=== PATIENT | female | born 1980 ===

== ENCOUNTER 2020-03-25 15:42 | Outpatient (REF) | payer SELFPAY | END 2020-03-25 15:43 | disposition home or self-care (01) | LOC: HO.LAB 15:42 | PROVIDERS: Visit Provider Internal Medicine | DX: Z20.828 Contact with and (suspected) exposure to other viral communicable diseases (principal) | CPT/HCPCS: C9803; U0003 ==

== ENCOUNTER 2020-06-04 08:21 | Outpatient (REF) | payer OTHER, SELFPAY ==
[2020-06-04 09:24] LABS: Alanine Aminotransferase 11 U/L (0-31); Albumin Level 4.2 g/dL (3.5-5.0); Alkaline Phosphatase 73 U/L (39-117); Anion Gap 10 (12-20); Aspartate Amino Transferase 20 U/L (5-31); Bilirubin Total 0.4 mg/dL (0.0-1.0); Blood Urea Nitrogen 20 mg/dL (9-16); Calcium 9.2 mg/dL (8.4-10.2); Carbon Dioxide 25 mmol/L (22-29); Chloride 109 mmol/L (96-108); Cholesterol 146 mg/dL; Estimated Glomerular Filt Rate > 60; Glucose Fasting 89 mg/dL (60-99); HDL Cholesterol 42 mg/dL; LDL Cholesterol Calculated 92 mg/dl; Sodium 140 mmol/L (135-145); Total Protein 7.6 g/dL (6.5-8.0); Triglycerides 60 mg/dL
[2020-06-04 09:45] LABS: TSH reflex Free T4 1.05 uIU/mL (0.32-4.0)
[2020-06-06 08:20] LABS: HBsAGNum1 0.15 S/CO (0.00-0.99); Hepatitis B Surface Antigen Negative (Negative); ~HepC Num1 0.11 S/CO (0.00-0.79); ~Hepatitis C Antibody Nonreactive (Nonreactive)
[2020-06-06 08:35] LABS: HBS Num1 4.14 mIU/mL (0-7.99); HBc Num1 0.07 S/CO (0.00-0.79); HIV AB/AG Nonreactive (Nonreactive); HIV Num 1 0.07 S/CO (0.00-0.99); Hepatitis B Core Antibody Nonreactive (Nonreactive); ~Hepatitis B Surface Antibody NONREACTIVE (Nonreactive)
[2020-06-06 20:16] LABS: C. trachomatis RNA TMA NOT DETECTED (NOT DETECTED); N. gonorrhoeae RNA TMA NOT DETECTED (NOT DETECTED)
[2020-06-09 14:27] LABS: Vitamin D 25-OH, D2 <4 ng/mL; Vitamin D 25-OH, D3 15 ng/mL; Vitamin D 25-OH, Total 15 ng/mL (30-100)
== END 2020-06-04 08:22 | disposition home or self-care (01) ==
LOC: HO.LAB 08:21
PROVIDERS: PCP Internal Medicine; Visit Provider Internal Medicine
DX: Z11.3 Encounter for screening for infections with a predominantly sexual mode of transmission (principal); Z01.84 Encounter for antibody response examination; Z11.4 Encounter for screening for human immunodeficiency virus [HIV]; R63.6 Underweight; E55.9 Vitamin D deficiency, unspecified; Z83.3 Family history of diabetes mellitus
CPT/HCPCS: 36415; 80053; 80061; 82306; 84443; 86704; 86706; 86803; 87340; 87389; 87491; 87591

== ENCOUNTER 2020-06-06 07:53 | Outpatient (REF) | payer OTHER, SELFPAY ==
[2020-06-07 09:23] LABS: BV Int Neg Control Negative (Negative); BV Int Pos Control Positive (Positive)
[2020-06-07 11:41] LABS: C. trachomatis RNA TMA NOT DETECTED (NOT DETECTED); N. gonorrhoeae RNA TMA NOT DETECTED (NOT DETECTED)
[2020-06-09 11:42] LABS: HPV mRNA E6/E7 rflx Not Detected (Not Detected)
== END 2020-06-06 07:54 | disposition home or self-care (01) ==
LOC: HO.LAB 07:53
PROVIDERS: PCP Internal Medicine; Visit Provider Advanced Practice Midwife
DX: Z01.419 Encounter for gynecological examination (general) (routine) without abnormal findings (principal); Z30.09 Encounter for other general counseling and advice on contraception; R10.2 Pelvic and perineal pain; N64.4 Mastodynia
CPT/HCPCS: 36415; 87480; 87491; 87510; 87591; 87624; 87660; 88142

== ENCOUNTER 2020-06-14 11:23 | Outpatient (REF) | payer OTHER, SELFPAY ==
--- NOTE | ~2020-06-14 | US_ITS ---
EXAMINATION: ULTRASOUND PELVIS TRANSABDOMINAL/TRANSVAGINAL COMPLETE CLINICAL INFORMATION: Pelvic and perineal pain. COMPARISON: Pelvic ultrasound dated 12/27/2017. TECHNIQUE: Multiple 2-D grayscale and Doppler transabdominal/transvaginal ultrasound images of the pelvis were obtained. FINDINGS: Uterus: Retroverted/retroflexed measuring 11.1 x 4.7 x 5.6 cm. The endometrium measures up to 0.6 cm at the level the fundus without significant abnormality. Tiny submucosal calcifications are noted near the fundus measuring up to 0.3 cm. The cervix is unremarkable. Mild free fluid in the cul-de-sac. Right ovary: 3.5 x 1.7 x 1.7 cm with a volume of 5.1 mL. Doppler showed no abnormal vascular flow. Left ovary: 3.3 x 2.7 x 1.8 cm with a volume of 8.4 mm. Color Doppler showed no abnormal vascular flow. Mild prominence of the left periuterine vessels. US/US transvaginal IMPRESSION: 1. Retroverted/retroflexed uterus without significant abnormality. 2. Mild prominence of the left periuterine vessels is nonspecific. No left ovarian abnormality. Mild congestion cannot be excluded.
--- NOTE | ~2020-06-14 | US_ITS ---
EXAMINATION: ULTRASOUND PELVIS TRANSABDOMINAL/TRANSVAGINAL COMPLETE CLINICAL INFORMATION: Pelvic and perineal pain. COMPARISON: Pelvic ultrasound dated 12/27/2017. TECHNIQUE: Multiple 2-D grayscale and Doppler transabdominal/transvaginal ultrasound images of the pelvis were obtained. FINDINGS: Uterus: Retroverted/retroflexed measuring 11.1 x 4.7 x 5.6 cm. The endometrium measures up to 0.6 cm at the level the fundus without significant abnormality. Tiny submucosal calcifications are noted near the fundus measuring up to 0.3 cm. The cervix is unremarkable. Mild free fluid in the cul-de-sac. Right ovary: 3.5 x 1.7 x 1.7 cm with a volume of 5.1 mL. Doppler showed no abnormal vascular flow. Left ovary: 3.3 x 2.7 x 1.8 cm with a volume of 8.4 mm. Color Doppler showed no abnormal vascular flow. Mild prominence of the left periuterine vessels. US/US pelvic complete IMPRESSION: 1. Retroverted/retroflexed uterus without significant abnormality. 2. Mild prominence of the left periuterine vessels is nonspecific. No left ovarian abnormality. Mild congestion cannot be excluded.
== END 2020-06-14 11:24 | disposition home or self-care (01) ==
LOC: HO.US 11:23
PROVIDERS: Visit Provider Advanced Practice Midwife
DX: R10.2 Pelvic and perineal pain (principal)
CPT/HCPCS: 76830; 76856

== ENCOUNTER 2020-06-15 10:48 | Outpatient (REF) | payer OTHER, SELFPAY ==
--- NOTE | ~2020-06-15 | MM_ITS ---
EXAMINATION: MM DIAGNOSTIC DIGITAL BREAST TOMOSYNTHESIS, bilateral Targeted left breast ultrasound. CLINICAL INFORMATION: Left breast pain. We are region and superior aspect left breast. The lifetime risk of breast cancer based on the Tyrer-Cuzick Model is 11.2%. COMPARISON: Mammography: None TECHNIQUE: Digital breast tomosynthesis is performed in both the craniocaudal and mediolateral oblique views along with computer-aided detection (CAD). Synthesized 2D images are generated from the tomosynthesis. Targeted left breast ultrasound. FINDINGS: The breasts are extremely dense, which lowers the sensitivity of mammography (ACR BI-RADS breast composition Category d). There are no significant masses, abnormal calcifications, or other abnormalities. Targeted left breast ultrasound demonstrates dense breast parenchyma without focal mass or region of distal sound shadowing. No edematous change within the parenchyma is seen. Results are provided to the patient at time of visit by the technologist. MM/MM tomosynthesis diagnostic BI IMPRESSION: No specific mammographic or ultrasound findings to suggest malignancy. ASSESSMENT: BI-RADS 1: Negative RECOMMENDATION: 1. Patient should be managed based on the clinical impression. 2. Otherwise, routine annual screening mammography. This patient's information was entered into a reminder system with a target due date for their next mammogram.
--- NOTE | ~2020-06-15 | US_ITS ---
EXAMINATION: US DIAGNOSTIC ULTRASOUND BREAST, LEFT CLINICAL INFORMATION: Mastodynia. COMPARISON: Mammography of same day.. TECHNIQUE: Ultrasound of the breast is performed with real-time gatica scale imaging and color Doppler. FINDINGS: Targeted left breast ultrasound demonstrates dense breast parenchyma without focal mass or region of distal sound shadowing. No edematous change within the parenchyma is seen. Results are provided to the patient at time of visit by the technologist. US/US breast LT limited IMPRESSION: No specific mammographic or ultrasound findings to suggest malignancy. ASSESSMENT: BI-RADS 1: Negative RECOMMENDATION: 1. Patient should be managed based on the clinical impression. 2. Otherwise, routine annual screening mammography.
== END 2020-06-15 10:49 | disposition home or self-care (01) ==
LOC: HO.MAMMO 10:48
PROVIDERS: PCP Internal Medicine; Visit Provider Advanced Practice Midwife
DX: N64.4 Mastodynia (principal)
CPT/HCPCS: 76642; 77062; 77066

== ENCOUNTER → 2020-06-17 11:04 | Outpatient (BNVA) | payer OTHER, SELFPAY | PROVIDERS: PCP Internal Medicine; Visit Provider Advanced Practice Midwife | DX: Z30.42 Encounter for surveillance of injectable contraceptive (principal) | CPT/HCPCS: 96372; 99211; J1050 ==

== ENCOUNTER → 2020-06-28 11:35 | Outpatient (BNVA) | payer OTHER, SELFPAY | PROVIDERS: PCP Internal Medicine; Visit Provider Advanced Practice Midwife ==

== ENCOUNTER → 2020-07-27 14:49 | Outpatient (BNVA) | payer OTHER, SELFPAY | PROVIDERS: Visit Provider Obstetrics & Gynecology | DX: Z30.09 Encounter for other general counseling and advice on contraception (principal) | CPT/HCPCS: 99212 ==

== ENCOUNTER 2020-07-28 08:08 | Day surgery (SDC) | payer OTHER, SELFPAY ==
[2020-07-22 09:48] VITALS: BMI 19.3
[2020-07-28] VITALS (7 sets, daily range): BP systolic 117–129; BP diastolic 70–80; PULSE 57–109; RESP 16–18; TEMP 36.2–36.7; O2SAT 99–100
[2020-07-28 08:29] LABS: UPreg QC Valid YES; Urine Pregnancy NEGATIVE (NEGATIVE)
[2020-07-28] MEDS: Lactated Ringers 1,000 ML 20 ML IVCONT (08:44)
--- NOTE | 2020-07-28 09:08 | P.CONAN_ITS ---
[facility] Active Problems Active Problems: All Active Problems (Updated 06/28/20 @ 11:48 by Julia miller) Encounter to discuss test results (Acute) Depot contraception (Acute) Low back pain (Acute) Screen for STD (sexually transmitted disease) (Acute) Family history of diabetes mellitus (DM) (Acute) Right hip pain (Acute) Past Medical History Medical History Family history of diabetes mellitus (DM) Low back pain Right hip pain Screen for STD (sexually transmitted disease) Family History Family History Father Diabetes Hypertension Heart attack Mother Hypertension Maternal Aunt Breast cancer Social History Social History Alcohol intake: never Smoking Status: Never smoker Advance Directives Information Provided: No Meds Allergies Allergy/AdvReac Type Severity Reaction Status Date / Time No Known Allergies Allergy Verified 06/28/20 11:46 Active Medications: Current Medications Generic Name Dose Route Start Last Admin Trade Name Freq PRN Reason Stop Dose Admin Sodium Chloride 500 mls @ 20 mls/hr 07/27/20 14:30 Ns IVCONT .Q24H CARLOS Lactated Ringer's 1,000 mls @ 20 mls/hr 07/27/20 14:30 07/28/20 08:44 Lr IVCONT 20 mls/hr .Q24H CARLOS Administration Acetaminophen 1,000 mg in 100 mls @ 400 mls/hr 07/28/20 11:00 Ofirmev IV 07/28/20 11:14 PREOP ONE Exam Exam Date and Time: July 28, 2020 0908 Height,Weight and Vital Signs: Height 5 ft 4 in Weight 51.256 kg Last Vital Signs Temp 98.1 F 07/28/20 08:23 Pulse 109 H 07/28/20 08:23 Resp 16 07/28/20 08:23 BP 129/79 07/28/20 08:23 Pulse Ox 99 07/28/20 08:23 Pertinent Lab Results Pertinent Lab Results: Laboratory Tests 07/28/20 08:09 Urine Test NEGATIVE Airway Mallampati Class: I TM Dist: >3cm Neck ROM: Full Assessment and Plan Assessment Anesthesia Assessment: Anesthesia Plan Discussed and Chart Reviewed Final Anesthetic Review NPO: Yes ASA Class: I Final Preanesthetic Review: No Changes in Pt Med Stat, Meds/Allgs Chart Reviewed, Consent Obtained/Reviewed and Anes Risks/Benef Reviewed Patient Risk: Low Procedure Risk: Low Assessment/Block/Sedation in SS: Assess/Block/Sedation-SS Anesthetic Plan Anesthetic Plan: GA Disposition: Standard PACU
--- NOTE | 2020-07-28 09:12 | MHC.SHP ---
Pre-Procedural Eval Section A The patient is an INPATIENT: No Changes since office visit: No Cold of Flu in the past 2 weeks, No New Medical Problems, No Changes in Medication and No Patient answered all questions The History & Physical has been completed within 30 days and I have reviewed it.: Yes Section B Chief Complaint: Unwanted Pregnacy Allergies: Allergies Allergy/AdvReac Type Severity Reaction Status Date / Time No Known Allergies Allergy Verified 06/28/20 11:46 Plan I have reviewed the history and physical and performed a pertinent physical examination on my patient. No changes have occurred unless specified.
--- NOTE | 2020-07-28 09:15 | P.OP_ITS ---
Operative Note Operative Note Date of Service: 07/28/20 Narrative: Pre-Procedure Diagnosis: unwanted fertility Post-Procedure Diagnosis: unwanted fertility Procedures performed: Laparoscopic bilateral tubal ligation Search Director: none Complications: none Specimens: none Disposition: Pacu Ms. Clifford is a 39 year old who has completed her family planning and desires a permanent form of sterilization. Surgical Risks: The patient was informed of the risks and benefits of the proc edure. Risks included but were not limited to bleeding, infection, injury to the vulva, vagina, or cervix, and uterine perforation. The patient was counseled on the risk of sterilization failure being about 1% on average. The patient was informed that in the event a occurs, the risk of ectopic is increased. The patient expressed understanding of the risks involved, all questions were answered, and the patient consented to the procedure. The patient had valid sterilization consent at the time of the procedure. The patient was taken to the operating room where a time out was performed to confirm correct patient and correct procedure. General anesthesia was established. The patient was then positioned on the operating table in the dorsal lithotomy position with the legs supported using stirrups. All pressure points were padded and a Joelle hugger was placed to maintain control of core body temperature. The patient was then prepped and draped in the usual sterile fashion. A red rubber catheter was inserted and 200mL urine obtained. A sponge stick was placed in the vagina for uterine manipulation. Attention was turned to the abdomen where a 5mm vertical infraumbilical incision was made. The 5mm trocar was introduced under direct visualization using the laparoscopy within the sleeve of the trocar. After intra-abdominal placement had been confirmed, the trocar was removed leaving the sleeve in place. The camera was introduced and pneumoperitoneum was established using carbon dioxide. Inspection of the abdominal cavity showed no gross abnormalities and there was no evidence of injury to the bowel, bladder, or vasculature. Attention was turned to the pelvis. The patient was placed into Trendelenburg position. The fallopian tubes and ovaries were visualized bilaterally. There were multiple paratubal cysts noted on the left fallopian tube; no other abnormalities noted. A small incision was made in the midline approximately 2cm above the pubic symphysis. A 5mm trocar was introduced through this incision under direct visualization with the laparoscope. The fallopian tubes were inspected bilaterally and the fimbriated ends of the fallopian tube were visualized bilaterally. The right fallopian tube and mesosalpinx were grasped and cauterized using Bipolar electrocautery with the Ligasure device. This was done with approximately three kang starting medially about 1cm from the cornua and working laterally. Good cautery was confirmed. Attention was then turned to the contralateral fallopian tube and mesosalpinx which was grasped about 1cm from the cornua and cauterized with three kang moving laterally with each cauterization. Good fulguration of both tubes was then confirmed. The pneumoperitoneum was then evacuated. The laparoscope was removed and the trocar sleeves were removed. The sponge stick was removed from the vagina. The skin incisions were closed with a single interrupted 3-0 Vicryl suture and Dermabond was applied. Good hemostasis was confirmed. The patient was transferred to the recovery room in stable condition. All needle, sponge, and instrument counts were noted to be correct x2 at the end of the procedure.
[2020-07-28] MEDS: oxyCODONE HCl Immed Release 5 MG TABLET PO (10:50)
== END 2020-07-28 11:39 | disposition home or self-care (01) ==
LOC: HO.SSS 08:09
PROVIDERS: PCP Internal Medicine; Visit Provider Obstetrics & Gynecology
PROC: (CPT 58670; principal; 2020-07-28 10:00)
DX: Z30.2 Encounter for sterilization (principal); K66.0 Peritoneal adhesions (postprocedural) (postinfection)
CPT/HCPCS: 58670; 81025; J0131; J1100; J1885; J2250; J2405; J3010

== ENCOUNTER 2021-03-29 08:35 | Outpatient (REF) | payer OTHER, SELFPAY | END 2021-03-29 08:36 | disposition home or self-care (01) | LOC: HO.LAB 08:35 | PROVIDERS: Visit Provider Internal Medicine | DX: Z20.822 Contact with and (suspected) exposure to COVID-19 (principal) | CPT/HCPCS: C9803; U0003; U0005 ==

== ENCOUNTER 2021-07-13 08:17 | Outpatient (REF) | payer OTHER, SELFPAY ==
[2021-07-13 08:34] LABS: MANUAL DIFF FLAG NO
[2021-07-13 09:02] LABS: Basophils Absolute Auto 0.1 X10*3/uL (0.0-0.2); Basophils Percent Auto 0.9 % (0-2); Eosinophils Absolute Auto 0.1 X10*3/uL (0.0-0.4); Eosinophils Percent Auto 1.5 % (0-4); Hematocrit 40.2 % (37.0-47.0); Hemoglobin 12.6 g/dl (12.0-16.0); Imm Gran Abs Auto 0.01 X10*3/uL (0.00-0.03); Imm Gran Pct Auto 0.2 % (0.0-0.4); Lymphocytes Absolute Auto 1.7 X10*3/uL (1.2-4.9); Lymphocytes Percent Auto 29.8 % (20-40); Mean Corpuscular HGB Conc 31.3 g/dl (31.0-35.0); Mean Corpuscular Hemoglobin 26.5 pg (27.0-33.0); Mean Corpuscular Volume 84.6 fL (80.0-98.0); Mean Platelet Volume 10.5 fL (9.4-12.3); Monocytes Absolute Auto 0.5 X10*3/uL (0.1-1.2); Monocytes Percent Auto 8.1 % (2-11); Neutrophils Absolute Auto 3.5 x10*3/uL (2.0-8.3); Neutrophils Percent Auto 59.5 % (45-73); Platelet Count 269 X10*3/uL (160-400); Red Blood Count 4.75 X10*6/uL (4.20-5.50); White Blood Count 5.8 X10*3/uL (4.8-10.8)
[2021-07-13 09:32] LABS: Alanine Aminotransferase 15 U/L (0-31); Albumin Level 4.3 g/dL (3.5-5.0); Alkaline Phosphatase 75 U/L (39-117); Anion Gap 11 (12-20); Aspartate Amino Transferase 21 U/L (5-31); Bilirubin Total 0.7 mg/dL (0.0-1.0); Blood Urea Nitrogen 14 mg/dL (9-16); Calcium 9.5 mg/dL (8.4-10.2); Carbon Dioxide 25 mmol/L (22-29); Chloride 106 mmol/L (96-108); Estimated Glomerular Filt Rate > 60; Glucose Random 89 mg/dL (60-115); Potassium 4.1 mmol/L (3.3-5.1); Sodium 138 mmol/L (135-145); Total Protein 7.8 g/dL (6.5-8.0)
[2021-07-13 09:56] LABS: TSH reflex Free T4 1.67 uIU/mL (0.32-4.0); Vitamin D 25-OH Total 17.5 ng/mL (>30)
[2021-07-13 09:59] LABS: Vitamin B12 666 pg/mL (200-900)
[2021-07-13 16:53] LABS: CT PCR NOT DETECTED (Not Detect.); NG PCR NOT DETECTED (Not Detect.)
== END 2021-07-13 08:18 | disposition home or self-care (01) ==
LOC: HO.LAB 08:17
PROVIDERS: PCP Internal Medicine; Visit Provider Nurse Practitioner Family
DX: Z11.3 Encounter for screening for infections with a predominantly sexual mode of transmission (principal); R53.83 Other fatigue
CPT/HCPCS: 36415; 80053; 82306; 82607; 82746; 84443; 85025; 87491; 87591

== ENCOUNTER 2022-01-11 09:42 | Outpatient (REF) | payer OTHER, SELFPAY ==
--- NOTE | ~2022-01-11 | XR_ITS ---
EXAMINATION: XR LUMBOSACRAL SPINE CLINICAL INFORMATION: Low back pain COMPARISON: None TECHNIQUE: Three views of the lumbosacral spine. FINDINGS: There is curvature of the lower thoracic and upper lumbar spine to the left and lumbar sacral spine to the right. There is exaggerated lumbar lordosis. No fracture or dislocation. Disc spaces are normal. There may be facet arthritis of the lower lumbar spine. XR/XR lumbar spine 2-3V IMPRESSION: Severe scoliosis.
[2022-01-11 10:16] LABS: MANUAL DIFF FLAG NO
[2022-01-11 10:45] LABS: Basophils Percent Auto 0.5 % (0-2); Eosinophils Percent Auto 0.5 % (0-4); Hematocrit 38.8 % (37.0-47.0); Hemoglobin 12.3 g/dl (12.0-16.0); Imm Gran Abs Auto 0.01 X10*3/uL (0.00-0.03); Imm Gran Pct Auto 0.2 % (0.0-0.4); Lymphocytes Absolute Auto 1.7 X10*3/uL (1.2-4.9); Lymphocytes Percent Auto 28.9 % (20-40); Mean Corpuscular HGB Conc 31.7 g/dl (31.0-35.0); Mean Corpuscular Hemoglobin 26.7 pg (27.0-33.0); Mean Corpuscular Volume 84.3 fL (80.0-98.0); Mean Platelet Volume 10.8 fL (9.4-12.3); Monocytes Absolute Auto 0.4 X10*3/uL (0.1-1.2); Monocytes Percent Auto 6.9 % (2-11); Neutrophils Absolute Auto 3.7 x10*3/uL (2.0-8.3); Platelet Count 254 X10*3/uL (160-400); Red Cell Distribution Width 14.1 % (11.0-16.0); White Blood Count 5.8 X10*3/uL (4.8-10.8)
[2022-01-11 11:10] LABS: Alanine Aminotransferase 11 U/L (0-31); Albumin Level 4.4 g/dL (3.5-5.0); Alkaline Phosphatase 76 U/L (39-117); Anion Gap 13 (12-20); Aspartate Amino Transferase 21 U/L (5-31); Bilirubin Total 0.5 mg/dL (0.0-1.0); Blood Urea Nitrogen 14 mg/dL (9-16); Calcium 9.5 mg/dL (8.4-10.2); Carbon Dioxide 26 mmol/L (22-29); Chloride 106 mmol/L (96-108); Estimated Glomerular Filt Rate > 60; Glucose Random 81 mg/dL (60-115); Iron 97 mcg/dL (30-160); Percent Iron Saturation 34 % (15-50); Potassium 3.8 mmol/L (3.3-5.1); Sodium 141 mmol/L (135-145); Total Iron Binding Capacity 282 mcg/dL (228-428); Total Protein 7.8 g/dL (6.5-8.0); Unsaturated Iron Binding 185 ug/dL
[2022-01-11 11:13] LABS: B Type Natriuretic Peptide 42 pg/mL (<100)
[2022-01-11 11:34] LABS: Vitamin D 25-OH Total 19.3 ng/mL (>30)
[2022-01-11 11:51] LABS: Folate 17.7 ng/mL (> or = 4.0); Vitamin B12 455 pg/mL (200-900)
== END 2022-01-11 09:43 | disposition home or self-care (01) ==
LOC: HO.LAB 09:42
PROVIDERS: PCP Internal Medicine; Visit Provider Internal Medicine
DX: M54.50 Low back pain, unspecified (principal); E55.9 Vitamin D deficiency, unspecified; D64.9 Anemia, unspecified; R01.1 Cardiac murmur, unspecified; R53.83 Other fatigue
CPT/HCPCS: 36415; 72100; 80053; 82306; 82607; 82746; 83540; 83880; 84443; 85025

== ENCOUNTER 2022-01-16 15:27 | Outpatient (REF) | payer OTHER, SELFPAY ==
--- NOTE | ~2022-01-16 | MM_ITS ---
EXAMINATION: MM SCREENING DIGITAL BREAST TOMOSYNTHESIS, BILATERAL CLINICAL INFORMATION: Screening. Asymptomatic. The lifetime risk of breast cancer based on the Tyrer-Cuzick Model is 13%. COMPARISON: Mammography: 06/15/2020 (baseline) TECHNIQUE: Digital breast tomosynthesis is performed in both the craniocaudal and mediolateral oblique views along with computer-aided detection (CAD). Synthesized 2D images are generated from the tomosynthesis. FINDINGS: The breasts are extremely dense, which lowers the sensitivity of mammography (ACR BI-RADS breast composition Category d). Breast tissue composition borders on heterogeneously dense. No architectural abnormality. There are no significant masses, abnormal calcifications, or other abnormalities. The axilla and skin contours are unremarkable. MM/MM tomosynthesis screening BI IMPRESSION: No mammographic evidence of malignancy. ASSESSMENT: BI-RADS 1: Negative RECOMMENDATION: Routine annual mammography screening. This patient's information was entered into a reminder system with a target due date for their next mammogram.
== END 2022-01-16 15:28 | disposition home or self-care (01) ==
LOC: HO.MAMMO 15:27
PROVIDERS: Visit Provider Internal Medicine
DX: Z12.31 Encounter for screening mammogram for malignant neoplasm of breast (principal)
CPT/HCPCS: 77063; 77067

== ENCOUNTER → 2022-01-29 13:38 | Outpatient (REF) | payer OTHER, SELFPAY ==
--- NOTE | 2022-01-29 13:40 | CA_ITS ---
Transthoracic Echocardiogram Patient (Last, First, Middle): Angelia Clifford, Gender: Female Date of : 1980 Age: 41 Procedure Date: 01/29/2022 Procedure Type: Transthoracic Echocardiogram Location: OP Height: 160.02 cm Weight: 54.43 kg BSA: 1.56 m2 Heart Rate: bpm BP: 125 / 72 mmHg Substation Operator Transforming: TO Referring MD: Jerri Boone MD Guardian Ad Litem: Dima Schmid MD Symptoms: R01.1 - Cardiac murmur, unspecified Study Quality: Good ECG Rhythm: Sinus Conclusions: - Normal study Findings Left Ventricle Normal left ventricular size, thickness, and systolic function. The visually estimated ejection fraction is between 60-65%. Diastolic function is normal for age. Right Ventricle Normal right ventricular cavity size and systolic function. Atria Both atria are normal in size. There is no evidence of interatrial shunt. Aortic Valve Normal aortic valve structure and function. There is no aortic valve stenosis. There is no aortic valve regurgitation. Mitral Valve Normal mitral valve structure and function. There is trace mitral valve regurgitation. There is no mitral valve stenosis. Pulmonic Valve The pulmonic valve is likely normal. Tricuspid Valve Normal tricuspid valve structure. There is trace tricuspid valve regurgitation. The right ventricular systolic pressure is normal. The right ventricular systolic pressure is 17 mmHg. Normal right atrial pressure. There is no evidence of pulmonary hypertension. Great Vessels All visible segments of the aorta are normal in size. The pulmonary artery was not well visualized. Venous The inferior vena cava is normal in size and collapses greater than 50% with inspiration. Pericardium/Pleural There is no evidence of pericardial effusion. Prior Study Comparison No prior study available for comparison. Measurements 2D Linear Measurements IVSd: 0.82 0.6-0.9/0.6-1.0 cm LVIDd: 3.78 3.9-5.3/4.2-5.9 cm LVIDd Index: 2.42 2.4-3.2/2.2-3.1 cm/m2 LVIDs: 2.65 2.0-3.6 cm LVPWd: 0.75 0.7-1.1 cm LA Diam: 2.80 2.7-3.8/3.0-4.0 cm LAIDs Index: 1.79 1.5-2.3 cm/m2 LV Mass: 102.82 67-162/88-224 g LV Mass Index: 65.91 43-95/49-115 g/m2 LVOT Diam: 1.90 3.0+(-)1.3 cm 2D Systolic Function EF 4C: 61.10 >55% EF 2C: 65.70 >55% EF BiP: 63.20 >55% Mitral Valve MV Pk E: 0.63 MV PK A: 0.36 MV Decel Time: 231.00 E/A: 1.80 E'Lateral: 16.80 E'Medial: 9.57 E/E' Med: 6.60 E/E' Lat: 3.80 PHT: 68.00 MVA PHT: 3.24 Decel Monroe: 2.72 Aortic Valve AoV Pk Osmany: 1.42 AoV Mn Osmany: 0.95 AoV VTI: 0.27 AoV Pk Grad: 8.00 Aov Mn Grad: 4.00 JEAN Cont.VTI: 1.99 LVOT LVOT Pk Osmany: 1.07 LVOT Mn Osmany: 0.63 LVOT VTI: 0.19 LVOT Pk Grad: 5.00 LVOT Mn Grad: 2.00 LVOT Diam: 1.90 LVOT Area: 2.84 Diastolic Function MV Pk E: 0.63 MV Pk A: 0.36 E/A: 1.80 E'Medial: 9.57 E/E' Med: 6.60 E' Laterial: 16.80 E/E' Lat: 3.80 Right Ventricle TAPSE (mm): 24.00 TVS' Osmany: 14.00 Tricuspid Valve TR Pk Osmany: 1.87 TR Pk Grad: 14.00 RA Press: 3.00 RVSP: 17.00 Great Vessels Aorta Sinus of Valsalva: 2.55 2.0-3.5 cm Ao Asc: 2.30 2.1-3.4 cm Updated in Other Vendor System with Status of Final Dima Schmid MD electronically signed on 01/29/2022 6:04:52 PM with status of Final
== END ==
LOC: HO.CARD 13:38
PROVIDERS: Visit Provider Internal Medicine
DX: R01.1 Cardiac murmur, unspecified (principal)
CPT/HCPCS: 93306

== ENCOUNTER 2022-06-15 12:02 | Outpatient (REF) | payer OTHER, SELFPAY ==
[2022-06-15 12:36] LABS: Hematocrit 36.3 % (37.0-47.0); Hemoglobin 11.8 g/dl (12.0-16.0); Mean Corpuscular HGB Conc 32.5 g/dl (31.0-35.0); Mean Corpuscular Hemoglobin 27.1 pg (27.0-33.0); Mean Corpuscular Volume 83.4 fL (80.0-98.0); Mean Platelet Volume 9.7 fL (9.4-12.3); Platelet Count 221 X10*3/uL (160-400); Red Blood Count 4.35 X10*6/uL (4.20-5.50); Red Cell Distribution Width 13.5 % (11.0-16.0); White Blood Count 7.7 X10*3/uL (4.8-10.8)
[2022-06-15 13:30] LABS: Alanine Aminotransferase 16 U/L (0-31); Alkaline Phosphatase 68 U/L (39-117); Anion Gap 11 (12-20); Aspartate Amino Transferase 21 U/L (5-31); Bilirubin Total 0.6 mg/dL (0.0-1.0); Blood Urea Nitrogen 12 mg/dL (9-16); Calcium 8.8 mg/dL (8.4-10.2); Carbon Dioxide 25 mmol/L (22-29); Chloride 106 mmol/L (96-108); Estimated Glomerular Filt Rate > 60; Glucose Random 90 mg/dL (60-115); Potassium 3.5 mmol/L (3.3-5.1); Sodium 138 mmol/L (135-145); Total Protein 7.2 g/dL (6.5-8.0)
== END 2022-06-15 12:03 | disposition home or self-care (01) ==
LOC: HO.LAB 12:02
PROVIDERS: PCP Internal Medicine; Visit Provider Nurse Practitioner Family
DX: Z32.01 Encounter for pregnancy test, result positive (principal)
CPT/HCPCS: 36415; 80053; 84702; 85027; 87086

== ENCOUNTER 2022-06-15 15:17 | Outpatient (REF) | payer OTHER, SELFPAY ==
--- NOTE | ~2022-06-15 | US_ITS ---
EXAMINATION: US OBSTETRICAL ULTRASOUND CLINICAL INFORMATION: Positive test. COMPARISON: Pelvic ultrasound dated 06/14/2020.. LMP: 05/16/2022, but not definitive. TECHNIQUE: Multiple 2-D grayscale FINDINGS: Uterus is anteverted and anteflexed measuring 12.0 x 6.1 x 7.3 cm. There is a single intrauterine gestational sac with visible yolk sac, embryo/fetus, and cardiac activity. There is no significant subchorionic hemorrhage or hematoma. Mild free fluid in the cul-de-sac. HR: 144 beats per minute. CRL (crown rump length): 1.05 cm (7 weeks, 2 days +/- 4 days). REMY (estimated date of delivery): 01/30/2023 +/- 4 days. US/US OB pelvic and transvaginal IMPRESSION: 1. Single intrauterine gestation with ultrasound gestational age of 7 weeks, 2 days +/- 4 days. Short-term obstetric follow-up is recommended. Imaging follow-up is recommended as clinically indicated.
== END 2022-06-15 15:18 | disposition home or self-care (01) ==
LOC: HO.US 15:17
PROVIDERS: PCP Obstetrics & Gynecology; Visit Provider Obstetrics & Gynecology
DX: Z32.01 Encounter for pregnancy test, result positive (principal)
CPT/HCPCS: 76801; 76817

== ENCOUNTER → 2022-06-18 10:52 | Outpatient (BNVA) | payer OTHER, SELFPAY | PROVIDERS: Visit Provider Obstetrics & Gynecology | DX: Z34.90 Encounter for supervision of normal pregnancy, unspecified, unspecified trimester (principal) | CPT/HCPCS: 99212 ==

== ENCOUNTER → 2022-06-29 09:22 | Outpatient (BNVA) | payer OTHER, SELFPAY | PROVIDERS: Visit Provider Obstetrics & Gynecology ==

== ENCOUNTER 2022-07-23 08:41 | Outpatient (REF) | payer OTHER, SELFPAY ==
[2022-07-23 09:25] LABS: Hematocrit 35.1 % (37.0-47.0); Hemoglobin 11.7 g/dl (12.0-16.0); Mean Corpuscular HGB Conc 33.3 g/dl (31.0-35.0); Mean Corpuscular Hemoglobin 27.1 pg (27.0-33.0); Mean Corpuscular Volume 81.3 fL (80.0-98.0); Mean Platelet Volume 10.4 fL (9.4-12.3); Platelet Count 223 X10*3/uL (160-400); Red Blood Count 4.32 X10*6/uL (4.20-5.50); Red Cell Distribution Width 12.9 % (11.0-16.0)
[2022-07-23 09:48] LABS: Amphetamine Screen Urine Not Detected (Not Detect); Barbiturates, Urine Not Detected (Not Detect); Benzodiazepines Screen Urine Not Detected (Not Detect); Cannabinoid Screen Urine Not Detected (Not Detect); Cocaine Screen Urine Not Detected (Not Detect); Fentanyl, urine Not Detected (Not Detect); Opiate Screen Urine Not Detected (Not Detect); Phencyclidine Screen Urine Not Detected (Not Detect)
[2022-07-23 10:04] LABS: Syphilis Screen Nonreactive (Nonreactive)
[2022-07-23 10:09] LABS: HBsAGNum1 0.27 S/CO (0.00-0.99); HIV AB/AG Nonreactive (Nonreactive); HIV Num 1 0.06 S/CO (0.00-0.99); Hepatitis B Surface Antigen Negative (Negative); ~HepC Num1 0.14 S/CO (0.00-0.79); ~Hepatitis C Antibody Nonreactive (Nonreactive)
[2022-07-25 01:23] LABS: Rubella IgG Antibody 3.78 Index
[2022-08-02 16:54] LABS: CF Ethnicity NG; Cystic Fibrosis NEGATIVE (NEGATIVE)
== END 2022-07-23 08:42 | disposition home or self-care (01) ==
LOC: HO.LAB 08:41
PROVIDERS: PCP Internal Medicine; Visit Provider Obstetrics & Gynecology
DX: Z34.90 Encounter for supervision of normal pregnancy, unspecified, unspecified trimester (principal)
CPT/HCPCS: 80307; 81220; 85027; 86762; 86780; 86787; 86803; 86850; 86900; 87086; 87340; 87389

== ENCOUNTER 2022-07-27 13:48 | Outpatient (REF) | payer OTHER, SELFPAY ==
[2022-07-28 11:35] LABS: BV Int Neg Control Negative (Negative); BV Int Pos Control Positive (Positive)
[2022-07-28 12:28] LABS: CT PCR NOT DETECTED (Not Detect.); NG PCR NOT DETECTED (Not Detect.)
== END 2022-07-27 13:49 | disposition home or self-care (01) ==
LOC: HO.LNP 13:48
PROVIDERS: PCP Internal Medicine; Visit Provider Advanced Practice Midwife
DX: O09.521 Supervision of elderly multigravida, first trimester (principal); O26.891 Other specified pregnancy related conditions, first trimester; Z83.3 Family history of diabetes mellitus; Z20.2 Contact with and (suspected) exposure to infections with a predominantly sexual mode of transmission; Z3A.13 13 weeks gestation of pregnancy
CPT/HCPCS: 0353U; 81003; 87480; 87510; 87660; 99212

== ENCOUNTER 2022-07-30 07:36 | Outpatient (REF) | payer OTHER, SELFPAY ==
[2022-07-30 10:41] LABS: Glucose 1 Hour PP 50gm Dose 85 mg/dL (60-140)
== END 2022-07-30 07:37 | disposition home or self-care (01) ==
LOC: HO.LAB 07:36
PROVIDERS: PCP Internal Medicine; Visit Provider Advanced Practice Midwife
DX: Z83.3 Family history of diabetes mellitus (principal)
CPT/HCPCS: 36415; 82950

== ENCOUNTER → 2022-08-24 13:45 | Outpatient (BNVA) | payer OTHER, SELFPAY | PROVIDERS: PCP Internal Medicine; Visit Provider Advanced Practice Midwife | DX: O09.522 Supervision of elderly multigravida, second trimester (principal); Z3A.17 17 weeks gestation of pregnancy | CPT/HCPCS: 81003; 99212 ==

== ENCOUNTER → 2022-09-21 13:21 | Outpatient (BNVA) | payer OTHER, SELFPAY | PROVIDERS: PCP Internal Medicine; Visit Provider Advanced Practice Midwife | DX: O09.522 Supervision of elderly multigravida, second trimester (principal); O26.892 Other specified pregnancy related conditions, second trimester; R35.0 Frequency of micturition; N99.89 Other postprocedural complications and disorders of genitourinary system; Z83.3 Family history of diabetes mellitus; Z3A.21 21 weeks gestation of pregnancy | CPT/HCPCS: 99212 ==

== ENCOUNTER 2023-01-05 17:08 | Emergency (ER) | payer OTHER, SELFPAY ==
[2023-01-05 17:22] VITALS: BP 133/79; PULSE 82; RESP 16; TEMP 37.3; O2SAT 97; BMI 22.3
--- NOTE | 2023-01-05 17:24 | ED.GENADULT ---
HPI - General Adult General Chief complaint: Urogenital-Female Stated complaint: skin /tissue is vaginal area Time Seen by Provider: 01/05/23 17:29 Source: patient Mode of arrival: ambulatory Limitations: language barrier ( Declined aerial photograph interpreter services) History of Present Illness HPI narrative: 42-year-old female here with complaints of swelling and pain in the vaginal area noticed today after showering. Patient reports she had uncomplicated vaginal delivery 1 week ago at [facility]. She tells me that all of her OBGYN care was at [facility]. She went there today to the emergency room but left due to the long wait. Patient reports she has some abdominal cramping which is intermittent scant vaginal bleeding which she has had since delivering which seems to be improving and is not worsened. She denies any difficulty urinating. No fevers or chills. Related Data Previous Rx's Medication Instructions Recorded back brace #1 ea 01/17/22 prenat.vits,pradeep,[id number]-[id number] 1 tab PO DAILY #90 tabs 06/15/22 doxylamine succinate 25 mg tablet 25 mg PO BEDTIME nausea vomiting 06/26/22 (Unisom (doxylamine)) 30 days #30 tabs pyridoxine (vitamin B6) 25 mg 25 mg PO TID 30 days #90 tabs 06/26/22 tablet Allergies Allergy/AdvReac Type Severity Reaction Status Date / Time No Known Allergies Allergy Verified 09/21/22 13:43 Review of Systems Review of Systems: Yes all other systems are reviewed and are negative Constitutional: Constitutional: Reports no additional constitutional complaints, Denies body ache(s), Denies chills, Denies fever(s), Denies headache(s) and Denies weakness Eyes: Eyes: Reports no additional eye complaints and Denies change in vision ENT: Reports system reviewed and no additional complaints, except as documented, Denies dizziness, Denies headache(s), Denies nasal congestion, Denies nasal discharge and Denies neck pain Cardiovascular: Cardiovascular: Reports no additional cardiovascular complaints, Denies chest pain, Denies leg edema and Denies dyspnea Respiratory: Respiratory: Reports no additional respiratory complaints, Denies cough and Denies dyspnea Gastrointestinal: Gastrointestinal: Reports no additional gastrointestinal complaints, Denies abdominal pain, Denies diarrhea, Denies nausea and Denies vomiting Genitourinary: Genitourinary: Reports no additional female genitourinary complaints and Denies urinary incontinence Musculoskeletal: Musculoskeletal: Reports no additional musculoskeletal complaints, Denies back pain, Denies arthralgias, Denies joint swelling, Denies neck pain, Denies numbness and Denies tingling Integumentary/Breasts: Skin/Breast: Reports system reviewed and no additional complaints, except as docu and Denies rash Neurologic: Reports system reviewed and no additional complaints, except as documented, Denies Abnormal speech present, Denies dizziness, Denies headache(s), Denies numbness, Denies tingling and Denies weakness [facility]LY [facility] Past Medical History Attestation statement: The following information was validated with the patient. Source: old records reviewed and nursing notes reviewed Medical History Primigravida of advanced maternal age in second trimester Low back pain Family history of diabetes mellitus (DM) Right hip pain Surgical History History of tubal ligation Family History Family History Father Diabetes Hypertension Heart attack Mother Hypertension Maternal Aunt Breast cancer Social History Social History Household Members: Spouse and Children Housing: Apartment Alcohol intake: never Patient Tobacco Use Status: Never used Tobacco e-Cigarette/Vaping Use: Never Used Second Hand Smoke Exposure: No Advance Directives: No Advance Directives Information Provided: No service: No Current occupational status: employed Current occupational exposures/hazards: No Cognitive needs: No Hearing needs: No Vision needs: Yes Physical Exam ED Vital Signs: Vital Signs - 24 hr 01/05/23 17:22 Temperature 99.1 F Pulse Rate 82 Respiratory Rate 16 Blood Pressure 133/79 Pulse Oximetry 97 Oxygen Delivery Method Room Air BMI result Body Mass Index 22.3 Const General: cooperative, healthy appearing, comfortable and no acute distress Orientation/consciousness: patient oriented x3 Limitations: no limitations HENMT Head: Yes normal to inspection Ears: hearing grossly normal bilaterally General nose exam: Normal external nose present Face and sinus: Yes normal facial exam Mouth: Normal oral and palatal mucosa present Throat: Yes posterior oropharynx normal Eyes General: appearance normal, both eyes and all related structures Pupils: Equal, round and reactive pupils present Neck Neck: Yes normal visual inspection Chest Chest palpation & inspection: normal inspection of the chest Resp Effort & Inspection: normal respiratory effort Auscultation: clear to auscultation bilaterally Cardio Rate: regular rate Rhythm: regular rhythm Peripheral pulses: Peripheral pulses 2+ throughout GI Inspection: Yes normal to inspection Palpation (GI): Soft to palpation and nontender Auscultation: normal bowel sounds Other: When the patient is laying supine the external appearance appears normal. When she stands up there is mild uterine prolapse noted, this improves when the patient lays supine. Carmen RN senior category manager Back/Spine/Pelvis Thoracic/Lumbar Spine: thoracic and lumbar spine normal to inspection Skin General skin exam: no rashes or lesions noted Neuro General: patient oriented x3, no focal motor deficits and normal sensation to monofilament Cranial nerves: Yes Equal, round and reactive pupils present Cognition (Neuro): normal cognition Speech: No Abnormal speech present Gait exam (Neuro): Normal gait present Motor exam (neuro): 5/5 motor strength present throughout Extrem General: Yes normal to inspection Course Course Course Narrative: RME- 42 year old female presents for evaluation of a ball in my vagina. She reports that she is one week post from a vaginal delivery. She gave at [facility]. Plan for physical examination. Reevaluation(s) Reevaluation #1: I did speak to gynecology at [facility]. They do feel the patient can follow up outpatient. She does have an appointment on Saturday with her ownn OBGYN for her check. She can keep this appointment on Saturday. She should seek care at [facility] for any worsening symptoms and this was communicated to her. Reviewed worrisome signs and symptoms with the patient. Comfortable plan for discharge home. Medical Decision Making Medical Decision Making [facility] Narrative: 42-year-old female here with complaints of swelling and pain in the vaginal area noticed today after showering. Patient reports she had uncomplicated vaginal delivery 1 week ago at [facility]. She tells me that all of her OBGYN care was at [facility]. She went there today to the emergency room but left due to the long wait. Patient reports she has some abdominal cramping which is intermittent scant vaginal bleeding which she has had since delivering which seems to be improving and is not worsened. She denies any difficulty urinating. No fevers or chills. when the patient is supine her external experience is normal. When she stands up there is mild uterine prolapse noted. This improves with lying supine again. The patient's abdomen is soft and nontender. She is nontoxic appearing. no urinary difficulty Will discuss with her microwave oven assembler Differential Diagnosis Differential Diagnoses: The differential diagnosis associated with the presentation includes uterine prolapse low concern for hemorrhage, infection, retained products of conception Admission/Observation Consideration of admission/observation: Escalation of care including admission/observation considered Consult Healthcare Provider Management of the patient was discussed with: Food Manager Cigarette Machine Operator- Spoke to microwave oven assembler at [facility]. patient can follow-up outpatient with her microwave oven assembler. She should seek care and we 2 for any worsening symptoms this weekend Discharge Plan Discharge Clinical Impression: Uterine prolapse Patient Disposition: Home, Self-Care Instructions: Uterine Prolapse (ED) Additional Instructions: keep your appointment on Saturday to see your OBGYN for check This if there is any increase in pain, increase in swelling, fever, inability to urinate you can go to wetu triage at [facility] to be seen. this is located on the ground floor of the [facility] acuda a kelly floyd el arabella para dian a kelly obstetra y ginec?logo para un control posparto. Elva fin de semana, si hay alg?n aumento en el dolor, aumento en la hinchaz?n, fiebre o incapacidad para orinar, puede ir a Wetu Triage en [facility] para ser atendido. Est? ubicado en la plant[place] del [facility]. Prescriptions: No Action (DME) [facility] See Rx Instructions .Route Qty: 1 0RF Rx Instructions: As directed pyridoxine (vitamin B6) 25 mg tablet 25 mg PO TID 30 Days Qty: 90 1RF Unisom (doxylamine) 25 mg tablet 25 mg PO BEDTIME 30 Days Qty: 30 0RF prenat.vits,pradeep,[id number]-[id number] Tablet 1 tab PO DAILY Qty: 90 1RF Referrals: Jerri Kern MD [Primary Care Provider] - 1 week Print Language: Indonesian
== END 2023-01-05 19:09 | disposition home or self-care (01) ==
PROVIDERS: Emergency Provider Emergency Medicine; PCP Internal Medicine
DX: N81.4 Uterovaginal prolapse, unspecified (principal); R10.2 Pelvic and perineal pain
CPT/HCPCS: 99284

== ENCOUNTER 2023-01-29 15:44 | Outpatient (REF) | payer OTHER, SELFPAY ==
--- NOTE | ~2023-01-29 | MM_ITS ---
EXAMINATION: MM SCREENING DIGITAL BREAST TOMOSYNTHESIS, BILATERAL CLINICAL INFORMATION: Screening. Asymptomatic. Patient is one month . COMPARISON: Mammography: This study is compared with prior exams dating back to 2020. TECHNIQUE: Digital breast tomosynthesis is performed in both the craniocaudal and mediolateral oblique views along with computer-aided detection (CAD). Synthesized 2D images are generated from the tomosynthesis. FINDINGS: The breasts are extremely dense, which lowers the sensitivity of mammography (ACR BI-RADS breast composition Category d). There are no significant masses, abnormal calcifications, or other abnormalities. MM/MM tomosynthesis screening BI IMPRESSION: No mammographic evidence of malignancy. ASSESSMENT: BI-RADS BI-RADS 1 - Negative RECOMMENDATION: Routine annual mammography screening. 1 year F/U This examination should not preclude the clinical evaluation of a suspicious palpable abnormality. This patient's information was entered into a reminder system with a target due date for their next mammogram.
== END 2023-01-29 15:45 | disposition home or self-care (01) ==
LOC: HO.MAMMO 15:44
PROVIDERS: Visit Provider Internal Medicine
DX: Z12.31 Encounter for screening mammogram for malignant neoplasm of breast (principal)
CPT/HCPCS: 77063; 77067

== ENCOUNTER → 2023-01-29 15:45 | Outpatient (BNV) | payer OTHER, SELFPAY | PROVIDERS: Visit Provider Radiology Diagnostic Radiology | DX: Z12.31 Encounter for screening mammogram for malignant neoplasm of breast (principal) | CPT/HCPCS: 77063; 77067 ==

== ENCOUNTER 2023-09-16 09:52 | Outpatient (AMB) | payer OTHER, SELFPAY ==
--- NOTE | 2023-09-16 10:22 | AM.OFFVISNUR ---
Intake Intake Visit Reasons: PPD Implant Allergies No Known Allergies Allergy (Verified 09/21/22 13:43) Office Meds tuberculin PPD 5 tub. unit/0.1 mL intradermal injection solution Performing Provider: Jerri Boone MD [facility] Administered by: Trang Busby RN on 09/16/23 10:22 Dose Route Admin Location Dispensed Lot Number Expiration Date NDC Rheostat Assembler 0.1 mL intradermal 0.1 mL [id number] 08/05/26 59845-675-00 [employer] Coding Assessment & Plan Assessment & Plan Orders: Orders AMB PPD Planted Today Z11.1 - Encounter for screening for respiratory tuberculosis Medications: New tuberculin PPD 0.1 mL intradermal ONCE 0.1 mL 0RF Z11.1 - Encounter for screening for respiratory tuberculosis
== END 2023-09-16 10:26 | disposition home or self-care (01) ==
PROVIDERS: Visit Provider Internal Medicine
DX: Z11.1 Encounter for screening for respiratory tuberculosis (principal)
CPT/HCPCS: 86580

== ENCOUNTER 2023-09-23 12:03 | Outpatient (AMB) | payer OTHER, SELFPAY ==
--- NOTE | 2023-09-23 12:27 | MHC.PC.OV ---
Vital Signs 09/23/23 12:28 Height 5 ft 3 in Weight 125 lb BMI 22.1 BP 112/78 Blood Pressure Location Lt brachial Position Sitting Intake Visit Reasons: PE Intake Note: Patient here for a physical exam Cracker Dough Mixer Required: No Accompanied by: Child Allergies No Known Allergies Allergy (Verified 09/23/23 12:36) Medication List - Last Reconciled 09/23/23 by Jerri Boone MD back brace As directed Tobacco use date assessed: 09/23/23 Dental Screening Dental Screen Date: 09/23/23 Did you have a dental visit in the last 12 months?: Yes Did you have a dental problem in the last 6 months where you did not have access to dental care?: No Was dental information given to patient?: Patient has dentist HPI HPI Comments History of Present Illness Details This is a 43-year-old female that comes for her physical exam. Last mammogram was 01/25/2023 and was normal. Last Pap smear was 2020 and was normal. No chest pain or shortness on breath. Doing well. [facility] Medical History (Updated 09/23/23 @ 13:09 by Jerri Boone MD) Primigravida of advanced maternal age in second trimester Low back pain Family history of diabetes mellitus (DM) Right hip pain Surgical History History of tubal ligation Family History (Updated 09/23/23 @ 12:41 by Jerri Boone MD) Father Diabetes Hypertension Heart attack Mother Hypertension Thyroid disease Cardiovascular disease Maternal Aunt Breast cancer Social History Household Members: Spouse and Children Housing: Apartment Alcohol intake: never Patient Tobacco Use Status: Never used Tobacco e-Cigarette/Vaping Use: Never Used Second Hand Smoke Exposure: No service: No Current occupational status: employed Current occupational exposures/hazards: No Cognitive needs: No Hearing needs: No Vision needs: Yes Female Reproductive History Menstrual Age of Menarche: 11 Questionnaire PHQ-9 Over the last 2 weeks, how often have you been bothered by any of the following problems? 1. Little interest or pleasure in doing things: not at all 2. Feeling down, depressed, or hopeless: not at all 3. Trouble falling or staying asleep, or sleeping too much: not at all 4. Feeling tired or having little energy: not at all 5. Poor appetite or overeating: not at all 6. Feeling bad about yourself - or that you are a failure or have let yourself or your family down: not at all 7. Trouble concentrating on things, such as reading the newspaper or watching television: not at all 8. Moving or speaking so slowly that other people could have noticed. Or the opposite - being so fidgety or restless that you have been moving around a lot more than usual: not at all 9. Thoughts that you would be better off or of hurting yourself in some way: not at all Total score: 0 Depression Screening Interpretation: Negative Depression Screening Done: Yes 69679 - PHQ-9 Billing: Yes Source: Developed by Drs. Zechariah Tam, Selam Guidry, Jose G Abad and colleagues, with an educational baldemar from [employer]. Thrive Questionnaire Date Thrive assessed: 09/23/23 I am a: Patient What is your living situation today?: I have a steady place to live Within the past 12 months, did the food you bought not last and you didn't have the money to get more?: Never true Within the past 12 months, did you worry whether your food would run out before you got money to buy more?: Never true Do you have trouble paying for medicines?: No Do you have trouble getting transportation to medical appointments?: No Do you have trouble paying your heating and electricity bill?: No Do you have trouble taking care of your child, family member or friend?: No Do you have trouble with day-to-day activities such as bathing, preparing meals, shopping, managing finances, etc.?: No Are you currently unemployed and looking for a job?: No Are you interested in more education?: No Please select the resources that you would like help with: None Currently or been in a relationship where the following occur: no concerns reported THRIVE Score: 0 AUDIT C Alcohol Use Questionnaire (AUDIT-C) 1. How often do you have a drink containing alcohol?: Never Total Score: 0 BENI-7 AMB Questionnaire BENI-7 Date BENI - 7 assessed: 09/23/23 Feeling nervous, anxious, or on edge: 0 = Not at all Not being able to stop or control worryin = Not at all Worrying too much about different things: 0 = Not at all Trouble relaxin = Not at all Being so restless that it is hard to sit still: 0 = Not at all Becoming easily annoyed or irritable: 0 = Not at all Feeling afraid as if something awful might happen: 0 = Not at all Total BENI-7 score (0-4 normal; 5-9 mild; 10-14 moderate; 15-21 severe): 0 Source: Developed by Drs. Zechariah Tam, Selam Guidry, Jose G Abad and colleagues, with an educational baldemar from [employer]. BENI-7 Assessment Billing BENI-7 Assessment Tool: BENI-7 Assessment 41201 Review of Systems Const All systems reviewed & are unremarkable except as noted in HPI and below Eyes Reports no additional complaints, Denies change in vision and Denies other visual disturbances Card Denies chest pain at rest, Denies chest pain with activity, Denies edema, Denies irregular heart rhythm, Denies claudication, Denies dyspnea, Denies dyspnea on exertion, Denies orthopnea, Denies paroxysmal nocturnal dyspnea and Denies slow heart rate Resp Denies cough, Denies dyspnea and Denies dyspnea on exertion Physical exam (Primary Care) Vital Signs: Last Vital Signs BP 112/78 09/23/23 12:28 BMI result Body Mass Index 22.1 Tobacco/Smoking Status: Tobacco use Status Tobacco use date assessed 09/23/23 09/23/23 12:34 Patient Tobacco Use Status Never used Tobacco 09/23/23 12:34 e-Cigarette/Vaping Use Never Used 09/23/23 12:34 PHQ-9: PHQ-9 Score PHQ-9: Total score 0 09/23/23 12:42 Depression Screening Interpretation: Negative Thrive Assessment: Date of Thrive Assessment Date Thrive assessed 09/23/23 09/23/23 12:34 Currently or been in a relationship where the following occur: no concerns reported Const Orientation/consciousness: patient oriented x3 HENMT Head: Yes normal to inspection, Yes normocephalic and Yes atraumatic Ears: external ears normal Eyes General: appearance normal, both eyes and all related structures Eyelids: Yes eyelids normal Conjunctivae: conjunctivae normal Neck Neck: Yes normal visual inspection and Yes supple Resp Effort & Inspection: normal respiratory effort Auscultation: clear to auscultation bilaterally Cardio Jugular venous distension: no JVD Rate: regular rate Rhythm: regular rhythm Heart sounds: S1 normal heart sound present and S2 normal heart sound present GI Inspection: Yes normal to inspection Palpation (GI): Soft to palpation and nontender Auscultation: normal bowel sounds Skin General skin exam: no rashes or lesions noted Neuro General: patient oriented x3 and no focal motor deficits Extrem General: Yes full ROM Psych Appearance: grossly normal Assessment and Plan Assessment & Plan (1) Physical exam: Code(s): Z00.00 - Encounter for general adult medical examination without abnormal findings Plan: Repeat in a year. Coding Level of Care Code Est Pt Prev Care 40-64y(93570) Diagnoses Physical exam Z00.00 Additional Codes BENI-7 Assessment Billing - BENI-7 Assessment Tool: BENI-7 Assessment 49438 ([id number]) Time Spent (min) 30
[2023-09-23 12:28] VITALS: BP 112/78; BMI 22.1
== END 2023-09-23 12:47 | disposition home or self-care (01) ==
PROVIDERS: Visit Provider Internal Medicine
DX: Z00.00 Encounter for general adult medical examination without abnormal findings (principal)
CPT/HCPCS: 99396

== ENCOUNTER 2024-02-04 15:24 | Outpatient (REF) | payer OTHER, SELFPAY ==
--- NOTE | ~2024-02-04 | MM_ITS ---
EXAMINATION: MM SCREENING DIGITAL BREAST TOMOSYNTHESIS, BILATERAL CLINICAL INFORMATION: Screening. Asymptomatic. COMPARISON: Mammography: Comparison is made with available priors TECHNIQUE: Digital breast mammography with tomosynthesis is performed in both the craniocaudal and mediolateral oblique views along with computer-aided detection (CAD). FINDINGS: The breasts are extremely dense, which lowers the sensitivity of mammography (ACR BI-RADS breast composition Category d). There are no significant masses, abnormal calcifications, or other abnormalities. MM/MM tomosynthesis screening BI IMPRESSION: No mammographic evidence of malignancy. ASSESSMENT: BI-RADS BI-RADS 1 - Negative RECOMMENDATION: Routine annual mammography screening. 1 year F/U This examination should not preclude the clinical evaluation of a suspicious palpable abnormality. This patient's information was entered into a reminder system with a target due date for their next mammogram. Electronically signed by: Candie Christian DO 02/13/2024 08:15 AM ABDIFATAH
== END 2024-02-04 15:25 | disposition home or self-care (01) ==
LOC: HO.MAMMO 15:24
PROVIDERS: PCP Internal Medicine; Visit Provider Internal Medicine
DX: Z12.31 Encounter for screening mammogram for malignant neoplasm of breast (principal)
CPT/HCPCS: 77063; 77067

== ENCOUNTER → 2024-02-04 15:45 | Outpatient (BNV) | payer OTHER, SELFPAY | PROVIDERS: PCP Internal Medicine; Visit Provider Internal Medicine | DX: Z12.31 Encounter for screening mammogram for malignant neoplasm of breast (principal) | CPT/HCPCS: 77063; 77067 ==

== ENCOUNTER 2024-06-18 13:11 | Outpatient (AMB) | payer OTHER, SELFPAY ==
--- NOTE | 2024-06-18 13:16 | A.OFFPC_ITS ---
Vital Signs 06/18/24 13:21 Height 5 ft 3 in Weight 119 lb BMI 21.1 BP 112/70 Blood Pressure Location Lt brachial Position Sitting Intake Visit Reasons: Pain in LT. 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 Accompanied by: Self / Same As Patient Allergies No Known Allergies Allergy (Verified 06/18/24 13:43) Medication List - Last Reconciled 06/18/24 by Jerri Boone MD No Known Home Meds Tobacco use date assessed: 06/18/24 Dental Screening Dental Screen Date: 06/18/24 Did you have a dental visit in the last 12 months?: Yes Did you have a dental problem in the last 6 months where you did not have access to dental care?: No Was dental information given to patient?: Patient has dentist HPI HPI Comments History of Present Illness0 Details The patient is a 43-year-old female presenting with unexplained weight loss and headache. Over time, she has experienced a decline in weight from 125 pounds to 119 pounds, which she correlates with altered eating habits and caring for her young child, leading to irregular meal times. She suspects a need for vitamins to address potential deficiencies. Additionally, the patient suffers from recurring headaches, characterized as diffuse, dull, and persistent for a few hours, sometimes more aggravated by exposure to light, especially at night while driving. Recent eye examinations indicated increased intraocular pressure, with corrective lenses being updated and a forthcoming specialist appointment planned. Further reports include perimenopausal symptoms, such as mood swings and hot flashes, impacting her social interactions. The patient agreed to have laboratory tests conducted to assess potential nutritional deficiencies. [facility] Medical History (Updated 06/18/24 @ 14:10 by Jerri Boone MD) Primigravida of advanced maternal age in second trimester Low back pain Family history of diabetes mellitus (DM) Right hip pain Surgical History History of tubal ligation Family History Father Diabetes Hypertension Heart attack Mother Hypertension Thyroid disease Cardiovascular disease Maternal Aunt Breast cancer Social History Household Members: Spouse and Children Housing: Apartment Alcohol intake: never Patient Tobacco Use Status: Never used Tobacco e-Cigarette/Vaping Use: Never Used Second Hand Smoke Exposure: No service: No Current occupational status: employed Current occupational exposures/hazards: No Cognitive needs: No Hearing needs: No Vision needs: Yes Female Reproductive History Menstrual Age of Menarche: 11 Questionnaire PHQ-9 Over the last 2 weeks, how often have you been bothered by any of the following problems? 1. Little interest or pleasure in doing things: not at all 2. Feeling down, depressed, or hopeless: not at all 3. Trouble falling or staying asleep, or sleeping too much: not at all 4. Feeling tired or having little energy: not at all 5. Poor appetite or overeating: not at all 6. Feeling bad about yourself - or that you are a failure or have let yourself or your family down: not at all 7. Trouble concentrating on things, such as reading the newspaper or watching television: not at all 8. Moving or speaking so slowly that other people could have noticed. Or the opposite - being so fidgety or restless that you have been moving around a lot more than usual: not at all 9. Thoughts that you would be better off or of hurting yourself in some way: not at all Total score: 0 Depression Screening Interpretation: Negative Depression Screening Done: Yes 81470 - PHQ-9 Billing: Yes Source: Developed by Drs. Zechariah Tam, Selam Guidry, Jose G Abad and colleagues, with an educational baldemar from [employer]. Thrive Questionnaire Date Thrive assessed: 06/18/24 I am a: Patient What is your living situation today?: I have a steady place to live Within the past 12 months, did the food you bought not last and you didn't have the money to get more?: Never true Within the past 12 months, did you worry whether your food would run out before you got money to buy more?: Never true Do you have trouble paying for medicines?: No Do you have trouble getting transportation to medical appointments?: No Do you have trouble paying your heating and electricity bill?: No Do you have trouble taking care of your child, family member or friend?: No Do you have trouble with day-to-day activities such as bathing, preparing meals, shopping, managing finances, etc.?: No Are you currently unemployed and looking for a job?: No Are you interested in more education?: No Please select the resources that you would like help with: None Currently or been in a relationship where the following occur: No concerns reported THRIVE Score: 0 AUDIT C Alcohol Use Questionnaire (AUDIT-C) 1. How often do you have a drink containing alcohol?: Never Total Score: 0 Score Reviewed/Action Taken: No BENI-7 AMB Questionnaire BENI-7 Date BENI - 7 assessed: 06/18/24 Feeling nervous, anxious, or on edge: 0 = Not at all Not being able to stop or control worryin = Not at all Worrying too much about different things: 0 = Not at all Trouble relaxin = Not at all Being so restless that it is hard to sit still: 0 = Not at all Becoming easily annoyed or irritable: 0 = Not at all Feeling afraid as if something awful might happen: 0 = Not at all Total BENI-7 score (0-4 normal; 5-9 mild; 10-14 moderate; 15-21 severe): 0 Source: Developed by Drs. Zechariah Tam, Selam Guidry, Jose G Abad and colleagues, with an educational baldemar from [employer]. BNEI-7 Assessment Billing BENI-7 Assessment Tool: BENI-7 Assessment 43372 Review of Systems Const All systems reviewed & are unremarkable except as noted in HPI and below Reports headache(s) and Reports weight loss ENT Reports headache(s) Card Denies chest pain at rest, Denies chest pain with activity, Denies edema, Denies irregular heart rhythm, Denies claudication, Denies dyspnea, Denies dyspnea on exertion, Denies orthopnea, Denies paroxysmal nocturnal dyspnea and Denies slow heart rate Resp Denies cough, Denies dyspnea and Denies dyspnea on exertion GI Denies abdominal pain, Denies change in bowel habits, Denies excessive flatus, Denies nausea and Denies vomiting Denies urinary incontinence, Denies urinary hesitancy and Denies urinary urgency Musc Denies atrophy, Denies deformity, Reports arthralgias and Denies limited range of motion Skin/Breast Denies bleeding lesions, Reports breast pain, Denies changing lesions and Denies rash Neuro Reports headache(s) Physical exam (Primary Care) Vital Signs: Last Vital Signs BP 112/70 06/18/24 13:21 BMI result Body Mass Index 21.1 Tobacco/Smoking Status: Tobacco use Status Tobacco use date assessed 06/18/24 06/18/24 13:25 Patient Tobacco Use Status Never used Tobacco 06/18/24 13:25 e-Cigarette/Vaping Use Never Used 06/18/24 13:25 PHQ-9: PHQ-9 Score PHQ-9: Total score 0 06/18/24 13:25 Depression Screening Interpretation: Negative Thrive Assessment: Date of Thrive Assessment Date Thrive assessed 06/18/24 06/18/24 13:25 Currently or been in a relationship where the following occur: No concerns reported Chest Breast/axilla inspection: normal inspection of the breasts and normal inspection of the axillae Breast/axilla palpation: normal palpation of the axillae and abnormal palpation of the breast (Left breast pain at 03:00 o'clock) Resp Effort & Inspection: normal respiratory effort Auscultation: clear to auscultation bilaterally Cardio Jugular venous distension: no JVD Rate: regular rate Rhythm: regular rhythm Heart sounds: S1 normal heart sound present and S2 normal heart sound present Extrem General: Yes full ROM Coding Level of Care Code Est Pt Level 4 (33383) Complex EM visit Add On G2211 Diagnoses Left shoulder pain M25.512 Neck pain M54.2 Breast pain, left N64.4 Headache R51.9 Additional Codes BENI-7 Assessment Billing - BENI-7 Assessment Tool: BENI-7 Assessment 96245 ([id number]) PHQ-9 - 28800 - PHQ-9 Billing: Yes ([id number]) Time Spent (min) 21 Assessment & Plan Assessment & Plan (1) Left shoulder pain: Code(s): M25.512 - Pain in left shoulder Category: Medical (2) Neck pain: Code(s): M54.2 - Cervicalgia Category: Medical (3) Breast pain, left: Code(s): N64.4 - Mastodynia Category: Medical (4) Headache: Code(s): R51.9 - Headache, unspecified Category: Medical Plan A comprehensive plan entails obtaining laboratory work for the unexplained weight loss, focusing on dietary improvements and potential vitamin supplementation. Managing the tension-type headache includes using prescribed medication with environmental adjustments. Eye pressure concerns are to be addressed by specialist intervention, and recent corrective lenses should alleviate visual strain. Supportive care for perimenopausal symptoms involves lifestyle modifications and, if indicated, multivitamin use. Patient was informed and verbally consented to the use of an ambient scribe for clinic note documentation during this visit. In discussing the management plan, I reviewed the unexplained weight loss with attention to nutritional intake and potential vitamin deficiencies, advising laboratory work. For the tension-type headache, I outlined treatment through medication and light sensitivity mitigation. Addressing the bilateral eye pressure involves continued ophthalmological follow-up, with prescription lenses possibly providing symptom relief. We addressed perimenopausal changes with recommendations for lifestyle adjustments and agreeing to further vitamin assessment, explaining these factors' potential impacts on her condition. We also talked about scheduling follow-up visits post-evaluation to monitor her progress and adjustment to medications. Orders: Orders IRON PROFILE Today D64.9 - Anemia, unspecified Vitamin B12 and Folate Today E53.8 - Deficiency of other specified B group vitamins XR cervical spine 2V Today M54.2 - Cervicalgia Complete Blood Count Auto Diff Today D64.9 - Anemia, unspecified Lipid Panel Today E78.5 - Hyperlipidemia, unspecified Vitamin D 25-OH Total Today E55.9 - Vitamin D deficiency, unspecified Comprehensive Leonard. Panel Fast Today R53.83 - Other fatigue Thyroid Stimulating Hormone Today R53.83 - Other fatigue XR shoulder LT min 2V Today M25.512 - Pain in left shoulder MM diagnostic mammo unilat LT Today N64.4 - Mastodynia US breast LT complete Today N64.4 - Mastodynia Medications: New sumatriptan succinate do not exceed 8 doses per 24 hrs 25 mg PO Q2-4H 30 days PRN 9 tabs 1RF migraine headache ibuprofen 800 mg PO Q8H 30 days PRN 90 tabs 0RF pain cyclobenzaprine 5 mg PO BEDTIME 30 days PRN 30 tabs 0RF muscle spasm Patient Instructions: - Follow dietary recommendations to regularize meals and improve nutritional intake. - Use prescribed medication for headache relief as directed by the prescription. - Wear updated corrective lenses to alleviate visual symptoms and protect eyes from excessive light exposure. - Monitor and document headache occurrences, noting any changes in triggers or relief factors. - Attend scheduled specialist appointment in July for further evaluation of eye pressure. - Implement strategies for managing perimenopausal symptoms, such as maintaining a cool environment and practicing stress-reducing techniques. - Schedule follow-up appointments as necessary to monitor progress and adjustment to the management plan.
[2024-06-18 13:21] VITALS: BP 112/70; BMI 21.1
== END 2024-06-18 14:01 | disposition home or self-care (01) ==
LOC: HO.HMCH 13:12
PROVIDERS: PCP Internal Medicine; Visit Provider Internal Medicine
DX: M25.512 Pain in left shoulder (principal); M54.2 Cervicalgia; N64.4 Mastodynia; R51.9 Headache, unspecified

== ENCOUNTER → 2024-06-18 13:11 | Outpatient (BNVA) | payer OTHER, SELFPAY | PROVIDERS: PCP Internal Medicine; Visit Provider Internal Medicine | DX: M25.512 Pain in left shoulder (principal); M54.2 Cervicalgia; N64.4 Mastodynia; R51.9 Headache, unspecified | CPT/HCPCS: 96127; 99212 ==

== ENCOUNTER 2024-08-11 08:48 | Outpatient (REF) | payer OTHER, SELFPAY ==
--- NOTE | ~2024-08-11 | US_ITS ---
EXAMINATION: MM DIAGNOSTIC DIGITAL BREAST TOMOSYNTHESIS, LEFT CLINICAL INFORMATION: Left pain upper outer quadrant. COMPARISON: Mammography: [facility] on PACS. TECHNIQUE: Digital breast tomosynthesis is performed in both the craniocaudal and mediolateral oblique views along with computer-aided detection (CAD). Synthesized 2D images are generated from the tomosynthesis. FINDINGS: The breasts are extremely dense, which lowers the sensitivity of mammography (ACR BI-RADS breast composition Category d). Humphrey marker in the upper outer breast posterior depth without underlying abnormality at the site of patient's pain. There are no significant masses, abnormal calcifications, or other abnormalities. Targeted color Doppler ultrasound scanning in the upper outer quadrant of the left breast and axilla demonstrates normal fibronodular breast tissue. There are 2 normal axillary lymph nodes. US/US breast LT limited mamm only IMPRESSION: No mammographic or sonographic abnormality to account for the patient's left upper outer quadrant breast pain. Recommend clinical evaluation and follow-up. ASSESSMENT: BI-RADS BI-RADS 1 - Negative RECOMMENDATION: 1 year F/U Results were provided to the patient at time of visit by the technologist. This patient's information was entered into a reminder system with a target due date for their next mammogram. Electronically signed by: Candie Christian DO 08/11/2024 09:57 AM EDT
== END 2024-08-11 08:49 | disposition home or self-care (01) ==
LOC: HO.MAMMO 08:48
PROVIDERS: PCP Internal Medicine; Visit Provider Internal Medicine
DX: N64.4 Mastodynia (principal)
CPT/HCPCS: 76642; 77061; 77065

== ENCOUNTER → 2024-08-11 09:30 | Outpatient (BNV) | payer OTHER, SELFPAY | PROVIDERS: PCP Internal Medicine; Visit Provider Internal Medicine | DX: N64.4 Mastodynia (principal) | CPT/HCPCS: 76642; 77061; 77065 ==

== ENCOUNTER 2024-09-30 08:31 | Outpatient (REF) | payer OTHER, SELFPAY ==
[2024-09-30 08:45] LABS: MANUAL DIFF FLAG NO
[2024-09-30 09:07] LABS: Basophils Percent Auto 0.5 % (0-2); Eosinophils Absolute Auto 0.1 X10*3/uL (0.0-0.4); Eosinophils Percent Auto 1.3 % (0-4); Hematocrit 38.5 % (37.0-47.0); Hemoglobin 12.4 g/dl (12.0-16.0); Imm Gran Abs Auto 0.01 X10*3/uL (0.00-0.03); Imm Gran Pct Auto 0.2 % (0.0-0.4); Lymphocytes Absolute Auto 1.9 X10*3/uL (1.2-4.9); Lymphocytes Percent Auto 31.1 % (20-40); Mean Corpuscular HGB Conc 32.2 g/dl (31.0-35.0); Mean Corpuscular Hemoglobin 26.7 pg (27.0-33.0); Mean Platelet Volume 10.4 fL (9.4-12.3); Monocytes Absolute Auto 0.4 X10*3/uL (0.1-1.2); Monocytes Percent Auto 7.2 % (2-11); Neutrophils Absolute Auto 3.6 x10*3/uL (2.0-8.3); Neutrophils Percent Auto 59.7 % (45-73); Platelet Count 242 X10*3/uL (160-400); Red Blood Count 4.64 X10*6/uL (4.20-5.50); Red Cell Distribution Width 14.4 % (11.0-16.0)
[2024-09-30 10:03] LABS: Alanine Aminotransferase 18 U/L (0-31); Albumin Level 4.4 g/dL (3.5-5.0); Alkaline Phosphatase 75 U/L (39-117); Anion Gap 10 (12-20); Aspartate Amino Transferase 28 U/L (5-31); Bilirubin Total 0.4 mg/dL (0.0-1.0); Blood Urea Nitrogen 13 mg/dL (9-16); Calcium 8.9 mg/dL (8.4-10.2); Carbon Dioxide 26 mmol/L (22-29); Chloride 109 mmol/L (96-108); Cholesterol 153 mg/dL (<200); Estimated Glomerular Filt Rate > 60; Glucose Fasting 96 mg/dL (60-99); HDL Cholesterol 45 mg/dL (>40); Iron 70 mcg/dL (30-160); LDL Cholesterol Calculated 96 mg/dL (<100); Percent Iron Saturation 31 % (15-50); Potassium 3.8 mmol/L (3.3-5.1); Sodium 141 mmol/L (135-145); Total Iron Binding Capacity 223 mcg/dL (228-428); Total Protein 7.7 g/dL (6.5-8.0); Triglycerides 64 mg/dL (<150); Unsaturated Iron Binding 153 ug/dL
[2024-09-30 10:20] LABS: Thyroid Stimulating Hormone 1.95 uIU/mL (0.32-4.0); Vitamin D 25-OH Total 26.2 ng/mL (>30)
[2024-09-30 10:25] LABS: Folate 12.9 ng/mL (> or = 4.0); Vitamin B12 536 pg/mL (200-900)
== END 2024-09-30 08:32 | disposition home or self-care (01) ==
LOC: HO.LAB 08:31
PROVIDERS: PCP Internal Medicine; Visit Provider Internal Medicine
DX: D64.9 Anemia, unspecified (principal); R53.83 Other fatigue; E78.5 Hyperlipidemia, unspecified; E53.8 Deficiency of other specified B group vitamins; E55.9 Vitamin D deficiency, unspecified
CPT/HCPCS: 36415; 80053; 80061; 82306; 82607; 82746; 83540; 84443; 85025

== ENCOUNTER 2024-10-01 15:13 | Outpatient (REF) | payer OTHER, SELFPAY ==
--- NOTE | ~2024-10-01 | XR_ITS ---
EXAMINATION: XR SHOULDER, LEFT CLINICAL INFORMATION: M25.512 - Pain in left shoulder COMPARISON: None available. TECHNIQUE: AP external rotation, Grashey, scapular Y, and axillary views of the left shoulder. FINDINGS: AC joint is intact and not degenerated. There is no left shoulder dislocation. There is no degenerative change. XR/XR shoulder LT min 2V IMPRESSION: Unremarkable left shoulder Electronically signed by: Josh Clement MD 10/01/2024 05:15 PM EDT
--- NOTE | ~2024-10-01 | XR_ITS ---
EXAMINATION: XR CERVICAL SPINE 2-3 VIEWS HISTORY: M54.2 - Cervicalgia COMPARISON: There are no prior studies available for comparison. FINDINGS: AP, lateral, and open-mouth odontoid views of the cervical spine are submitted. Osseous mineralization is normal. Seven cervical vertebral bodies are identified maintaining normal height without evidence of fracture or subluxation. There is straightening of the normal cervical lordosis. There is moderate degenerative disc disease at the C6-7 level, with disc space narrowing and osteophyte formation. The remaining intervertebral disc spaces are preserved. The odontoid and lateral masses of C1 are intact. There is no prevertebral soft tissue swelling. XR/XR cervical spine 2V IMPRESSION: Straightening of the normal cervical lordosis. Moderate degenerative disc disease at C6-7. Electronically signed by: Zechariah Blair MD 10/02/2024 07:55 AM EDT
== END 2024-10-01 15:14 | disposition home or self-care (01) ==
LOC: HO.XRAY 15:13
PROVIDERS: Visit Provider Internal Medicine
DX: M25.512 Pain in left shoulder (principal); M54.2 Cervicalgia
CPT/HCPCS: 72040; 73030

== ENCOUNTER → 2024-10-01 15:27 | Outpatient (BNV) | payer OTHER, SELFPAY | PROVIDERS: Visit Provider Radiology Diagnostic Radiology | DX: M50.323 Other cervical disc degeneration at C6-C7 level (principal) | CPT/HCPCS: 72040 ==

== ENCOUNTER 2024-10-05 10:18 | Outpatient (AMB) | payer OTHER, SELFPAY ==
--- NOTE | 2024-10-05 10:25 | A.OFFPC_ITS ---
Vital Signs 10/05/24 10:26 Height 5 ft 3 in Weight 116 lb BMI 20.5 BP 98/66 Blood Pressure Location Lt brachial Position Sitting Intake Visit Reasons: annual exam Intake Note: Patient here for a physical exam Data Entry Representative Required: No Accompanied by: Daughter Allergies No Known Allergies Allergy (Verified 10/05/24 10:38) Medication List - Last Reconciled 10/05/24 by Jerri Boone MD cyclobenzaprine 5 mg PO BEDTIME PRN 30 days ibuprofen 800 mg PO Q8H PRN 30 days sumatriptan succinate 25 mg PO Q2-4H PRN 30 days Tobacco use date assessed: 06/18/24 Dental Screening Dental Screen Date: 06/18/24 HPI HPI Comments History of Present Illness Details The patient is a 44-year-old female presenting for her physical exam.i The cervical pain is attributed to muscle spasms and arthritis at the C6 vertebra, as identified in a recent neck imaging study. The patient reports severe pain radiating to the arm, which is consistent with the cervical findings. The shoulder examination did not reveal any abnormalities, confirming the neck as the source of the pain. The patient also reports breast pain, particularly in the left breast, which has been a concern. An ultrasound was performed to rule out any underlying issues, and the results were normal. The patient associates the breast pain with the cervical spasm and arthritis. [facility] Medical History Primigravida of advanced maternal age in second trimester Low back pain Family history of diabetes mellitus (DM) Right hip pain Surgical History History of tubal ligation Family History Father Diabetes Hypertension Heart attack Mother Hypertension Thyroid disease Cardiovascular disease Maternal Aunt Breast cancer Social History Household Members: Spouse and Children Housing: Apartment Alcohol intake: never Patient Tobacco Use Status: Never used Tobacco e-Cigarette/Vaping Use: Never Used Second Hand Smoke Exposure: No service: No Current occupational status: employed Current occupational exposures/hazards: No Cognitive needs: No Hearing needs: No Vision needs: Yes Female Reproductive History Menstrual Age of Menarche: 11 Questionnaire PHQ-9 Over the last 2 weeks, how often have you been bothered by any of the following problems? 1. Little interest or pleasure in doing things: not at all 2. Feeling down, depressed, or hopeless: not at all 3. Trouble falling or staying asleep, or sleeping too much: not at all 4. Feeling tired or having little energy: not at all 5. Poor appetite or overeating: not at all 6. Feeling bad about yourself - or that you are a failure or have let yourself or your family down: not at all 7. Trouble concentrating on things, such as reading the newspaper or watching television: not at all 8. Moving or speaking so slowly that other people could have noticed. Or the opposite - being so fidgety or restless that you have been moving around a lot more than usual: not at all 9. Thoughts that you would be better off or of hurting yourself in some w ay: not at all Total score: 0 Depression Screening Interpretation: Negative Depression Screening Done: Yes 92519 - PHQ-9 Billing: Yes Source: Developed by Drs. Zechariah Tam, Selam Guidry, Jose G Abad and colleagues, with an educational baldemar from [employer] Thrive Questionnaire Date Thrive assessed: 06/18/24 I am a: Patient What is your living situation today?: I have a steady place to live Within the past 12 months, did the food you bought not last and you didn't have the money to get more?: Never true Within the past 12 months, did you worry whether your food would run out before you got money to buy more?: Never true Do you have trouble paying for medicines?: No Do you have trouble getting transportation to medical appointments?: No Do you have trouble paying your heating and electricity bill?: No Do you have trouble taking care of your child, family member or friend?: No Do you have trouble with day-to-day activities such as bathing, preparing meals, shopping, managing finances, etc.?: No Are you currently unemployed and looking for a job?: No Are you interested in more education?: No Please select the resources that you would like help with: None Currently or been in a relationship where the following occur: No concerns reported THRIVE Score: 0 AUDIT C Alcohol Use Questionnaire (AUDIT-C) 1. How often do you have a drink containing alcohol?: Never Total Score: 0 Score Reviewed/Action Taken: No BENI-7 AMB Questionnaire BENI-7 Date BENI - 7 assessed: 06/18/24 Feeling nervous, anxious, or on edge: 0 = Not at all Not being able to stop or control worryin = Not at all Worrying too much about different things: 0 = Not at all Trouble relaxin = Not at all Being so restless that it is hard to sit still: 0 = Not at all Becoming easily annoyed or irritable: 0 = Not at all Feeling afraid as if something awful might happen: 0 = Not at all Total BENI-7 score (0-4 normal; 5-9 mild; 10-14 moderate; 15-21 severe): 0 Source: Developed by Drs. Zechariah Tam, Selam Guidry, Jose G Abad and colleagues, with an educational baldemar from [employer] BENI-7 Assessment Billing BENI-7 Assessment Tool: BENI-7 Assessment 04501 Review of Systems Const All systems reviewed & are unremarkable except as noted in HPI and below Card Denies chest pain at rest, Denies chest pain with activity, Denies edema, Denies irregular heart rhythm, Denies claudication, Denies dyspnea, Denies dyspnea on exertion, Denies orthopnea, Denies paroxysmal nocturnal dyspnea and Denies slow heart rate Resp Denies cough, Denies dyspnea and Denies dyspnea on exertion GI Denies abdominal pain, Denies change in bowel habits, Denies excessive flatus, Denies nausea and Denies vomiting Denies urinary incontinence, Denies urinary hesitancy and Denies urinary urgency Musc Denies abnormal gait, Denies atrophy, Denies deformity and Denies limited range of motion Skin/Breast Denies bleeding lesions, Denies changing lesions and Denies rash Neuro Denies abnormal gait, Denies behavioral changes and Denies lack of coordination Psych Denies behavioral changes Physical exam (Primary Care) Vital Signs: Last Vital Signs BP 98/66 10/05/24 10:26 BMI result Body Mass Index 20.5 Tobacco/Smoking Status: Tobacco use Status Tobacco use date assessed 06/18/24 10/05/24 10:32 Patient Tobacco Use Status Never used Tobacco 10/05/24 10:32 e-Cigarette/Vaping Use Never Used 10/05/24 10:32 PHQ-9: PHQ-9 Score PHQ-9: Total score 0 10/05/24 10:59 Depression Screening Interpretation: Negative Thrive Assessment: Date of Thrive Assessment Date Thrive assessed 06/18/24 10/05/24 10:32 Currently or been in a relationship where the following occur: No concerns reported HENMT Head: Yes normal to inspection, Yes normocephalic and Yes atraumatic Ears: external ears normal Eyes General: appearance normal, both eyes and all related structures Eyelids: Yes eyelids normal Conjunctivae: conjunctivae normal Neck Neck: Yes normal visual inspection and Yes supple Resp Effort & Inspection: normal respiratory effort Auscultation: clear to auscultation bilaterally Cardio Jugular venous distension: no JVD Rate: regular rate Rhythm: regular rhythm Heart sounds: S1 normal heart sound present and S2 normal heart sound present GI Inspection: Yes normal to inspection Palpation (GI): Soft to palpation and nontender Auscultation: normal bowel sounds Skin General skin exam: no rashes or lesions noted Neuro General: no focal motor deficits Extrem General: Yes full ROM Psych Appearance: grossly normal Coding Level of Care Code Est Pt Prev Care 40-64y(20566) Diagnoses Physical exam Z00.00 Additional Codes BENI-7 Assessment Billing - BENI-7 Assessment Tool: BENI-7 Assessment 53045 ([id number]) PHQ-9 - 49554 - PHQ-9 Billing: Yes ([id number]) Time Spent (min) 31 Assessment & Plan Assessment & Plan (1) Physical exam: Code(s): Z00.00 - Encounter for general adult medical examination without abnormal findings Category: Medical Plan The plan includes managing the cervical pain through appropriate interventions for muscle spasms and arthritis. The patient is advised to continue monitoring the breast pain and follow up with the scheduled mammogram in February. Patient was informed and verbally consented to the use of an ambient scribe for clinic note documentation during this visit.
[2024-10-05 10:26] VITALS: BP 98/66; BMI 20.5
== END 2024-10-05 10:52 | disposition home or self-care (01) ==
LOC: HO.HMCH 10:19
PROVIDERS: Visit Provider Internal Medicine
DX: Z00.00 Encounter for general adult medical examination without abnormal findings (principal)

== ENCOUNTER → 2024-10-05 10:18 | Outpatient (BNVA) | payer OTHER, SELFPAY | PROVIDERS: Visit Provider Internal Medicine | DX: Z00.00 Encounter for general adult medical examination without abnormal findings (principal) | CPT/HCPCS: 96127; 99396 ==